=== PATIENT | male | born 1960 | race African-American/Black ===

== ENCOUNTER → 2017-05-16 | Outpatient (CLI) | payer MEDICARE, MEDICAID ==
--- NOTE | 2017-05-16 17:54 | MRI ---
EXAM: Brain w/oContrast CLINICAL INDICATION: 56-year-old male with facial weakness. COMPARISON: None. TECHNIQUE: Multiplanar, multi-sequence MR imaging of the brain without contrast. FINDINGS: No abnormal increased signal intensity is present on diffusion-weighted imaging to suggest restricted diffusion/acute infarction. T2/flair weighted imaging reveals multifocal areas of patchy increased signal intensity present in a subcortical and periventricular deep white matter distribution, a nonspecific finding however may be seen with small vessel ischemic change. Focal area of gliosis and encephalomalacia is present within the LEFT MCA territory distribution, LEFT frontal lobe with areas of cystic type change compatible with sequela of prior infarction. Dilation of the LEFT lateral ventricle secondary to associated volume loss. Volume loss of the LEFT thalamus, superior cerebral peduncle and rigoberto compatible with Wallerian degeneration. There is no evidence of intracranial hemorrhage, mass or edema. Midline structures are within normal limits. The ventricles and sulci are enlarged compatible with underlying volume loss. Major intracranial flow voids are identified. The paranasal sinuses and mastoid air cells are patent. IMPRESSION: 1. No abnormal increased signal intensity is present on diffusion-weighted imaging to suggest restricted diffusion/acute infarction. 2. T2/flair weighted imaging reveals multifocal areas of patchy increased signal intensity present in a subcortical and periventricular deep white matter distribution, a nonspecific finding however may be seen with small vessel ischemic change. Electronically signed by: Micaela Alejandro MD 05/16/2017 5:53 PM LINKER UP Workstation: [id number]
== END | disposition home or self-care (01) ==
LOC: MRI 10:45
PROVIDERS: ATTEND Family Medicine
DX: I69.992 Facial weakness following unspecified cerebrovascular disease (principal)

== ENCOUNTER 2017-11-23 20:59 | Emergency (ER) | payer MEDICARE, MEDICAID ==
--- NOTE | 2017-11-23 21:25 | ED.PDOC ---
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 - History of Present Illness Timing/Duration: 4-6 hours Severity: mild Improving Factors: nothing Associated Symptoms: denies symptoms Allergies/Adverse Reactions: Allergies NO KNOWN ALLERGY Allergy (Unverified 10/08/13 19:49) Home Medications: Ambulatory Orders Acetaminophen [Tylenol] 500 mg PO Q4HR PRN MDD 3Gm 11/23/17 Aspirin [Aspirin EC] 81 mg PO DAILY 11/23/17 Atorvastatin Calcium [Lipitor] 20 mg PO BEDTIME 11/23/17 Biafine 11/23/17 Cyclobenzaprine HCl [Flexeril] 5 mg PO Q8HRS PRN 11/23/17 Diphenhydramine-Acetaminophen [Tylenol Pm Extra Strength 500-25 mg] 1 tab PO BEDTIME PRN 11/23/17 Duloxetine HCl [Cymbalta] 60 mg PO DAILY 11/23/17 Fenofibrate Micronized 200 mg PO DAILY 11/23/17 Hydralazine HCl 50 mg PO Q8HR 11/23/17 Metoprolol Tartrate 100 mg PO BID 11/23/17 Oxybutynin Chloride 5 mg PO TID 11/23/17 Phenytoin Sodium Cap Extended [Dilantin Cap] 100 mg PO BID 11/23/17 Potassium Chloride [Micro-K] 10 meq PO DAILY 11/23/17 Promethazine HCl 25 mg PO Q8HR PRN 11/23/17 Tramadol HCl [Ultram] 50 mg PO Q6HR PRN 11/23/17 Trazodone HCl 50 mg PO BEDTIME 11/23/17 amLODIPine BESYLATE [Norvasc] 10 mg PO BID 11/23/17 cloNIDine HCL [Catapres] 0.1 mg PO Q4H PRN 11/23/17 cloNIDine HCL [Catapres] 0.3 mg PO Q8HR PRN 11/23/17 Review of Systems - Review of Systems Unable to Obtain Due To: condition - CVA APHASIA Past Medical History (General) - Patient Medical History Hx Stroke: Yes Hx Hypertension: Yes Hx Diabetes: No - Vaccination History Immunizations Up to Date: Yes Family Medical History - Family History Father Family History: Unknown Physical Exam - Physical Exam General Appearance: Alert, Other - APHASIC Eye Exam: bilateral normal Ears, Nose, Throat: hearing grossly normal, normal ENT inspection Neck: full range of motion, supple Respiratory: lungs clear, normal breath sounds, no respiratory distress Cardiovascular/Chest: normal peripheral pulses, regular rate, rhythm, no edema, no gallop Gastrointestinal/Abdominal: normal bowel sounds, non tender, soft, no organomegaly, no pulsatile mass Back Exam: normal inspection, no CVA tenderness, no vertebral tenderness Extremity: normal range of motion Neurologic: alert, aphasia, facial droop, motor weakness, other - DENSE RIGHT HEMIPLEGIA Skin Exam: normal color, warm/dry Lymphatic: no adenopathy Departure - Departure Clinical Impression: Vomiting, CVA, old, aphasia Time of Disposition: 22:32 Disposition: Discharge to Home for Departure Forms: ED Discharge - Pt. Copy, Patient Portal Self Enrollment Diet: resume usual diet Activity: as per physical therapy Referrals: Johan Myers MD [Primary Care Provider] - 1-2 Weeks Home Medications: Ambulatory Orders Acetaminophen [Tylenol] 500 mg PO Q4HR PRN MDD 3Gm 11/23/17 Aspirin [Aspirin EC] 81 mg PO DAILY 11/23/17 Atorvastatin Calcium [Lipitor] 20 mg PO BEDTIME 11/23/17 Biafine 11/23/17 Cyclobenzaprine HCl [Flexeril] 5 mg PO Q8HRS PRN 11/23/17 Diphenhydramine-Acetaminophen [Tylenol Pm Extra Strength 500-25 mg] 1 tab PO BEDTIME PRN 11/23/17 Duloxetine HCl [Cymbalta] 60 mg PO DAILY 11/23/17 Fenofibrate Micronized 200 mg PO DAILY 11/23/17 Hydralazine HCl 50 mg PO Q8HR 11/23/17 Metoprolol Tartrate 100 mg PO BID 11/23/17 Oxybutynin Chloride 5 mg PO TID 11/23/17 Phenytoin Sodium Cap Extended [Dilantin Cap] 100 mg PO BID 11/23/17 Potassium Chloride [Micro-K] 10 meq PO DAILY 11/23/17 Promethazine HCl 25 mg PO Q8HR PRN 11/23/17 Tramadol HCl [Ultram] 50 mg PO Q6HR PRN 11/23/17 Trazodone HCl 50 mg PO BEDTIME 11/23/17 amLODIPine BESYLATE [Norvasc] 10 mg PO BID 11/23/17 cloNIDine HCL [Catapres] 0.1 mg PO Q4H PRN 11/23/17 cloNIDine HCL [Catapres] 0.3 mg PO Q8HR PRN 11/23/17
--- NOTE | 2017-11-23 22:01 | CT ---
PROCEDURE: Head CLINICAL HISTORY: 57 years Male headache COMPARISON: 10/08/2013 TECHNIQUE: Contiguous axial CT images obtained through the brain without IV contrast. This exam was performed according to our department optimization program which includes automated exposure control, adjustment of the mA and/or kv according to patient size and/or use of iterative reconstruction technique. FINDINGS: The ventricles and sulci are prominent consistent with atrophic changes. Microvascular ischemic changes. No midline shift or mass effect. No mass lesions. No acute hemorrhage. Atherosclerotic calcifications. Large area of chronic infarct in the left MCA division which was present on the patient's prior study. Compensatory mild enteritis the left lateral ventricle and Wallerian degeneration in the midbrain. No fluid or significant mucosal thickening in the visualized paranasal sinuses. No depressed calvarial fractures. IMPRESSION: No acute intracranial abnormality is identified. Old left MCA infarct Generalized atrophy with microvascular ischemic changes. Electronically signed by: Cira Savage MD 11/23/2017 10:00 PM CDT
--- NOTE | 2017-11-23 22:01 | RAD ---
EXAM DESCRIPTION: Abdomen Flat Upright CLINICAL HISTORY: 57 years Male vomiting COMPARISON: None. TECHNIQUE: Single view of the abdomen. FINDINGS: Gas is present in nondilated colon. No evidence to suggest small bowel obstruction. Study is limited by body habitus. Heart appears enlarged. No obvious free intraperitoneal air. IMPRESSION: No acute process in the abdomen Electronically signed by: Cira Savage MD 11/23/2017 10:00 PM CDT
--- NOTE | 2017-11-23 22:03 | RAD ---
EXAM DESCRIPTION: Chest,1 View CLINICAL HISTORY: 57 years Male vomiting COMPARISON: 10/08/2013. FINDINGS: Cardiac size appears prominent. This may be in part due to prominent epicardial fat which was noted on the prior CT examination. Linear atelectasis in the right lung base. Left hemidiaphragm is obscured. The possibility of underlying atelectasis or infiltrate should be considered. IMPRESSION: Small amount of atelectasis in the right lung base Obscuration of the left hemidiaphragm. Question left retrocardiac atelectasis or infiltrate Electronically signed by: Cira Savage MD 11/23/2017 10:02 PM CDT
[2017-11-23 22:22] VITALS: TEMP 98.9; O2SAT 94
[2017-11-23 22:34] VITALS: BP 181/97
== END 2017-11-23 23:00 ==
LOC: ER 20:59
DX: R11.10 Vomiting, unspecified (principal); I69.920 Aphasia following unspecified cerebrovascular disease; I69.954 Hemiplegia and hemiparesis following unspecified cerebrovascular disease affecting left non-dominant side; I10 Essential (primary) hypertension; Z79.82 Long term (current) use of aspirin; Z79.899 Other long term (current) drug therapy

== ENCOUNTER 2017-11-25 00:26 | Inpatient (IN) | payer MEDICARE, MEDICAID ==
--- NOTE | 2017-11-25 01:05 | RAD ---
EXAM: Single view chest. INDICATION: Cough. COMPARISON: Chest x-ray: 11/23/2017. FINDINGS: There is a retrocardiac airspace opacity. The heart is at the upper limit of normal in size. Small pleural effusions may be present. There is no pneumothorax. IMPRESSION: Retrocardiac airspace opacity Electronically signed by: Prakash Baker MD 11/25/2017 1:03 AM CDT Workstation: [id number]
--- NOTE | 2017-11-25 01:08 | ED.PDOC ---
History of Present Illness - General Chief Complaint: Respiratory Problem Stated Complaint: cough, short of breath Time Seen by Provider: 11/25/17 01:05 Source: RN notes reviewed, family Exam Limitations: other - dysphasia - History of Present Illness Timing/Duration: gone now Severity: moderate Activities at Onset: none Possible Cause: unknown cause Improving Factors: other - coughed up mucous plug Worsening Factors: nothing Associated Symptoms: cough Respiratory Risk Factors: other - dysphagia Allergies/Adverse Reactions: Allergies NO KNOWN ALLERGY Allergy (Unverified 10/08/13 19:49) Home Medications: Ambulatory Orders Acetaminophen [Tylenol] 500 mg PO Q4HR PRN MDD 3Gm 11/23/17 Aspirin [Aspirin EC] 81 mg PO DAILY 11/23/17 Atorvastatin Calcium [Lipitor] 20 mg PO BEDTIME 11/23/17 Biafine 11/23/17 Cyclobenzaprine HCl [Flexeril] 5 mg PO Q8HRS PRN 11/23/17 Diphenhydramine-Acetaminophen [Tylenol Pm Extra Strength 500-25 mg] 1 tab PO BEDTIME PRN 11/23/17 Duloxetine HCl [Cymbalta] 60 mg PO DAILY 11/23/17 Fenofibrate Micronized 200 mg PO DAILY 11/23/17 Hydralazine HCl 50 mg PO Q8HR 11/23/17 Metoprolol Tartrate 100 mg PO BID 11/23/17 Oxybutynin Chloride 5 mg PO TID 11/23/17 Phenytoin Sodium Cap Extended [Dilantin Cap] 100 mg PO BID 11/23/17 Potassium Chloride [Micro-K] 10 meq PO DAILY 11/23/17 Promethazine HCl 25 mg PO Q8HR PRN 11/23/17 Tramadol HCl [Ultram] 50 mg PO Q6HR PRN 11/23/17 Trazodone HCl 50 mg PO BEDTIME 11/23/17 amLODIPine BESYLATE [Norvasc] 10 mg PO BID 11/23/17 cloNIDine HCL [Catapres] 0.1 mg PO Q4H PRN 11/23/17 cloNIDine HCL [Catapres] 0.3 mg PO Q8HR PRN 11/23/17 Levofloxacin [Levaquin] 750 mg PO DAILY #5 tablet 11/25/17 Review of Systems - Review of Systems Constitutional: Denies: chills, fever EENTM: States: nose congestion Respiratory: States: cough, short of breath Cardiology: Denies: chest pain, edema Gastrointestinal/Abdominal: Denies: abdominal pain, diarrhea, nausea, vomiting Genitourinary: States: no symptoms reported Musculoskeletal: States: no symptoms reported Skin: States: no symptoms reported Neurological: States: pre-existing deficit - has R hemiplegia, weakness Past Medical History (General) - Patient Medical History Hx Stroke: Yes Hx Hypertension: Yes Hx Diabetes: No - Vaccination History Hx Pneumococcal Vaccination: Yes - Activities of Daily Living Jail/Assisted Living (if applicable):: [facility] - Triage Comment ED Triage Comment: Upon arrival pt coughed up large amout of mucous Family Medical History - Family History Father Family History: Unknown Physical Exam - Physical Exam General Appearance: Alert, Comfortable, No apparent distress Eyes, Ears, Nose, Throat Exam: PERRL/EOMI, pharynx normal Neck: non-tender Respiratory: chest non-tender, normal breath sounds, rhonchi Cardiovascular/Chest: normal peripheral pulses, regular rate, rhythm, no edema Gastrointestinal/Abdominal: normal bowel sounds, non tender, soft Rectal Exam: deferred Extremity: normal inspection, no pedal edema Neurologic: alert, normal mood/affect Skin Exam: normal color, warm/dry Lymphatic: no adenopathy Progress - EKG/XRAY/CT XRAY: chest - retrocardiac opacity Departure - Departure Clinical Impression: Pneumonia Qualifiers: Laterality: left Lung location: lower lobe of lung Disposition: Discharge to Home or Self Care Departure Forms: ED Discharge - Pt. Copy, Patient Portal Self Enrollment Referrals: Johan Myers MD [Primary Care Provider] - 1-2 Weeks Prescriptions: Levofloxacin [Levaquin] 750 mg PO DAILY #5 tablet Home Medications: Ambulatory Orders Acetaminophen [Tylenol] 500 mg PO Q4HR PRN MDD 3Gm 11/23/17 Aspirin [Aspirin EC] 81 mg PO DAILY 11/23/17 Atorvastatin Calcium [Lipitor] 20 mg PO BEDTIME 11/23/17 Biafine 11/23/17 Cyclobenzaprine HCl [Flexeril] 5 mg PO Q8HRS PRN 11/23/17 Diphenhydramine-Acetaminophen [Tylenol Pm Extra Strength 500-25 mg] 1 tab PO BEDTIME PRN 11/23/17 Duloxetine HCl [Cymbalta] 60 mg PO DAILY 11/23/17 Fenofibrate Micronized 200 mg PO DAILY 11/23/17 Hydralazine HCl 50 mg PO Q8HR 11/23/17 Metoprolol Tartrate 100 mg PO BID 11/23/17 Oxybutynin Chloride 5 mg PO TID 11/23/17 Phenytoin Sodium Cap Extended [Dilantin Cap] 100 mg PO BID 11/23/17 Potassium Chloride [Micro-K] 10 meq PO DAILY 11/23/17 Promethazine HCl 25 mg PO Q8HR PRN 11/23/17 Tramadol HCl [Ultram] 50 mg PO Q6HR PRN 11/23/17 Trazodone HCl 50 mg PO BEDTIME 11/23/17 amLODIPine BESYLATE [Norvasc] 10 mg PO BID 11/23/17 cloNIDine HCL [Catapres] 0.1 mg PO Q4H PRN 11/23/17 cloNIDine HCL [Catapres] 0.3 mg PO Q8HR PRN 11/23/17 Levofloxacin [Levaquin] 750 mg PO DAILY #5 tablet 11/25/17
[2017-11-25] MEDS ORDERED: cefTRIAXone SODIUM 1 GM in SODIUM CHL 0.9% 50ML MIN-BAG+ 50 ML IVPB ONE (01:17)
[2017-11-25] MEDS ORDERED: levoFLOXacin 500 MG TAB PO ONE (01:22)
[2017-11-25] MEDS ORDERED: cefTRIAXone SODIUM 1 GM VIAL ONE (01:31)
[2017-11-25] MEDS ORDERED: SODIUM CHL 0.9% 50ML MIN-BAG+ 50 ML IVPB ONE (01:32)
--- NOTE | 2017-11-25 02:26 | HP ---
SUPERVISING PHYSICIAN: Tucker Whipple MD CHIEF COMPLAINT: Dysphagia and likely aspiration. HISTORY OF PRESENT ILLNESS: This is a 57-year-old male patient with a history of a severe stroke with residual right sided hemiplegia as well as aphasia. Apparently about 3 days ago, the patient started to have some problem swallowing at [facility] where he resides. He actually came to the Emergency Room on 11/23/17 with vomiting. He was given some Phenergan and eventually released back to [facility]. There, they placed him on some Decadron for some potential esophageal inflammation. However, to my knowledge he does not have any history of this. Anyhow, he came back to the Emergency Room last night for dysphagia, coughing, nausea and vomiting. At that point, he was referred for admission for pneumonia. The chest x-ray did show a retrocardiac airspace opacity. Additionally, he had some leukocytosis. On exam, he had some rhonchi and he was admitted. Today, I saw the patient for initial history and physical. The patient is alert and able to answer questions via nods as well as gestures with his left hand as he is aphasic. The nurses were concerned that he was unable to eat breakfast and, in fact, he took a bite of I believe oatmeal and they had trouble suctioning it out because he could not swallow. Therefore, he has remained NPO. He states he has had the trouble with his swallowing for the last 3 days or so. I guess before, he had been able to take diet at [facility] as well as take p.o. medications without difficulty. Right now, his blood pressure is pretty significantly high, but he has been unable to take his p.o. medications for quite some time. PAST MEDICAL HISTORY: 1. Hypertension. 2. Tuberculosis. 3. Cerebrovascular accident with residual right sided hemiplegia and aphasia. 4. Seizures. 5. Depression. 6. Hyperlipidemia. PAST SURGICAL HISTORY: None. CURRENT MEDICATIONS: 1. Acetaminophen 500 mg 1 tablet every 4 hours p.r.n. for mild pain. 2. Amlodipine 10 mg p.o. b.i.d. 3. Aspirin 81 mg p.o. daily. 4. Atorvastatin 20 mg p.o. at bedtime. 5. Benicar 40 mg p.o. in the morning. 6. Clonidine 0.1 mg every 4 hours p.r.n. for blood pressure greater than 180/ 100. 7. Clonidine 0.3 mg every 8 hours scheduled. 8. Cyclobenzaprine 5 mg every 8 hours p.r.n. for muscle spasms. 9. Cymbalta 60 mg p.o. daily. 10. Dilantin 200 mg p.o. b.i.d. 11. Fenofibrate 200 mg p.o. daily. 12. Hydralazine 50 mg every 8 hours. 13. Metoprolol 50 mg 2 tablets (100 mg) b.i.d. 14. Oxybutynin 5 mg p.o. 3 times a day. 15. Potassium 10 mEq p.o. daily. 16. Promethazine 25 mg every 8 hours p.r.n. for nausea and vomiting. 17. Tramadol 50 mg p.o. q.6h. p.r.n. for pain. 18. Trazodone 50 mg p.o. q.h.s. ALLERGIES: NO KNOWN DRUG ALLERGIES. FAMILY HISTORY: A mother and brother have hypertension. Father with myocardial infarction. Mother two years ago of pancreatic cancer. SOCIAL HISTORY: The patient is . He does have two children. His documentation states he drinks alcohol and smokes cigarettes even at [facility]. REVIEW OF SYSTEMS: Please see the history of present illness as the patient is aphasic. PHYSICAL EXAMINATION: VITAL SIGNS: Blood pressure 206/102. Heart rate 95. Respiratory rate 22. Temperature 98.4. Oxygen saturation 93%. GENERAL: Mr. Rothman is a 57-year-old patient who is in no severe distress currently. HEENT: Normocephalic, atraumatic. Pupils are equal and reactive. No nasal drainage. Throat with moist mucosa. He does have a right sided facial droop. NECK: Supple. Midline trachea. No jugular venous distention. CHEST: Symmetrical with equal rise and fall of the chest with inspiration and expiration. Lung sounds are diminished in the bases. He does have bilateral rhonchi, right greater than left. CARDIOVASCULAR: Regular rate and rhythm. Normal S1, S2. ABDOMEN: Soft, obese. Positive bowel sounds. GENITOURINARY: Deferred. EXTREMITIES: Lower extremities with some ankle edema. NEUROLOGIC: The patient is awake and alert. He has a right sided hemiplegia. He is aphasic, but he does not appropriately and uses his left hand to point to things and gesture. LABORATORY: Sodium 140, p.o. 3.9, chloride 104, CO2 26, BUN 18, creatinine 1.11 , glucose 149, lactic acid 1.6, calcium 9.4. White count 14,000, hemoglobin 15.3, hematocrit 44.8, platelet count 236. Phenytoin level is 4.4. Chest x-ray , as stated before, shows a retrocardiac opacity. ASSESSMENT: 1. Aspiration pneumonia. 2. New onset dysphagia. 3. Uncontrolled hypertension. 4. History of cerebrovascular accident with residual right sided weakness and aphasia. 5. History of seizure disorder with a subtherapeutic Dilantin level. 6. Retrocardiac opacity. PLAN: At this point, I have placed the patient on Zosyn for coverage of aspiration pneumonia. He does reside in a fpc, so potentially it could be healthcare associated, but we will know more after the CT scan. Given his history, it is likely aspiration in nature. I also consulted with Dr. Briseno with gastroenterology from [facility] who is going to be here tomorrow and agrees that the patient does need an EGD. The patient will be kept NPO until he is seen by the chemical process equipment operator. I will start the patient on proton pump inhibitor for now. I have also started him on IV blood pressure medications as he cannot take p.o. at this time. This does not appear to be an extension of his stroke at this time. He continues to be aphasic with right sided hemiplegia, but this is nothing new. He does apparently have a retrocardiac opacity via chest x-ray, so we will evaluate this fully with a CT scan of the chest. I also checked his Dilantin level and it is subtherapeutic, so I am going to start him on IV Dilantin while he is not able to take p.o. medications. We will start him on DVT and GI prophylaxis as well. #[id number] [facility]
[2017-11-25] MEDS ORDERED: SODIUM CHLORIDE 0.9% (FLUSH) 10 ML SYG IV PRN (03:27)
[2017-11-25] MEDS ORDERED: ACETAMINOPHEN 325 MG TAB PO PRN (03:27)
[2017-11-25] MEDS ORDERED: ALBUTEROL SULFATE 2.5 MG/3 ML VIAL NEB PRN (03:27)
[2017-11-25] MEDS ORDERED: IV SET AND CAP CHANGE INJ INJ SCH (03:30)
[2017-11-25] MEDS ORDERED: AZITHROMYCIN IV 500 MG in SODIUM CHLORIDE 0.9% 250ML 250 ML IVPB SCH (03:30)
--- NOTE | 2017-11-25 03:57 | PCM.CORE ---
Physician DVT/VTE - Nurse DVT Assessment & Total Each Risk Factor Represents 3 Points: Medical PT with Hx of [place], CHF, Severe infection/sepsis Each Risk Factor Represents 1 Point: Age 41-60, Hx of smoking past year Each Risk Factor is 1 Point: Obesity (BMI >25) DVT Assessment Score: 6 - 5 or more Very High Risk Treatments: Early Ambulation *, Sequential Compression Device Pharmacological: Enoxaparin 40mg SQ Daily
[2017-11-25] MEDS ORDERED: SODIUM CHLORIDE 0.9% 250ML 250 ML ONE (04:27)
[2017-11-25] MEDS ORDERED: AZITHROMYCIN IV 500 MG VIAL IVPB ONE (04:27)
[2017-11-25] MEDS: IPRATROPIUM/ALBUTEROL 3 ML VIAL INH SCH ×4 (08:35→23:52)
[2017-11-25] MEDS ORDERED: hydrALAZINE HCl 20 MG/ML VIAL IV PRN (09:19)
[2017-11-25] MEDS ORDERED: PHENYTOIN SODIUM IVPB SCH (09:30)
[2017-11-25] MEDS ORDERED: SODIUM CHLORIDE 0.9% IVPB SCH (09:30)
[2017-11-25] MEDS ORDERED: PANTOPRAZOLE SODIUM IV 40 MG VIAL IV SCH (09:30)
[2017-11-25] MEDS ORDERED: PHENYTOIN SODIUM INJ 250 MG/5 ML VIAL ONE ×2 (09:57→17:41)
[2017-11-25] MEDS ORDERED: SODIUM CHLORIDE 0.9% 100ML 100 ML IVPB ONE ×4 (09:58→17:41)
[2017-11-25] MEDS ORDERED: ENOXAPARIN SODIUM 40 MG/0.4 ML SYG SUBCU SCH (10:00)
[2017-11-25] MEDS: METOPROLOL TARTRATE INJ 5 MG/5 ML VIAL IV SCH ×2 (10:17→15:30)
[2017-11-25] MEDS: SODIUM CHLORIDE 0.9% IVPB SCH ×2 (10:24→18:18)
[2017-11-25] MEDS: PHENYTOIN SODIUM IVPB SCH ×2 (10:24→18:18)
[2017-11-25] MEDS ORDERED: PIPERACILLIN/TAZOBACTAM 3.375 GM VIAL IVPB ONE ×2 (10:51→14:09)
[2017-11-25] MEDS ORDERED: PIPERACILLIN/TAZOBACTAM 3.375 GM in SODIUM CHLORIDE 0.9% 100ML 100 ML IVPB ONE (11:00)
[2017-11-25] MEDS ORDERED: KCL 20MEQ/D5 1/2NS 1,000 ML IVS PRN (11:18)
[2017-11-25] MEDS ORDERED: cefTRIAXone SODIUM 1 GM in SODIUM CHL 0.9% 50ML MIN-BAG+ 50 ML IVPB SCH (13:00)
[2017-11-25] MEDS ORDERED: PIPERACILLIN/TAZOBACTAM 3.375 GM in SODIUM CHLORIDE 0.9% 100ML 100 ML IVPB SCH (14:00)
[2017-11-25 15:32] VITALS: TEMP 98.1
[2017-11-25 15:46] VITALS: BP 223/106
[2017-11-25 16:31] VITALS: O2SAT 92
[2017-11-25] MEDS ORDERED: cloNIDine PATCH 0.2 MG/24HR 0.2 MG, cloNIDine PATCH 0.1MG/24HR 0.1 MG TD SCH ×2 (17:00)
[2017-11-25] MEDS ORDERED: cloNIDine PATCH 0.1MG/24HR 0.1 MG PATCH TD ONE (17:07)
[2017-11-25] MEDS ORDERED: cloNIDine PATCH 0.2 MG/24HR 0.2 MG PATCH TD ONE (17:07)
[2017-11-25] MEDS ORDERED: LABETALOL INJ 5 MG/ML VIAL IV ONE (17:54)
[2017-11-25] MEDS ORDERED: LABETALOL INJ 5 MG/ML VIAL ONE (17:59)
[2017-11-25] MEDS ORDERED: FUROSEMIDE INJ 40 MG/4 ML VIAL IV SCH (18:30)
[2017-11-25] MEDS ORDERED: EPINEPHrine INJ 0.1 MG/ML 10 ML SYG IV ONE ×4 (18:31→18:40)
[2017-11-25] MEDS ORDERED: SODIUM CHLORIDE 0.9% 1000ML 1,000 ML IVS ONE (18:40)
[2017-11-25] MEDS ORDERED: PROPOFOL 200 MG/20 ML VIAL IV ONE (19:39)
--- NOTE | 2017-11-26 08:21 | DS ---
SUPERVISING PHYSICIAN: Tucker Whipple MD DISCHARGE/TRANSFER SUMMARY DISCHARGE DIAGNOSIS: 1. Acute respiratory failure. 2. Cardiopulmonary arrest. 3. Aspiration pneumonia. 4. Dysphagia. 5. Hypertensive urgency. HOSPITAL COURSE: This 57-year-old male patient was admitted earlier today with aspiration pneumonia and new onset dysphagia. He was unable to take his blood pressure medicines and was placed on IV medications. However, this was inadequately controlling his blood pressure. Additionally, he began to cough and gag on very thick secretions. ABG was done which showed respiratory acidosis with hypoxia. He was a DNR at that point and arrangements were being made to transfer him to [facility]. However, he did progress to cardiopulmonary arrest. ACLS protocol was initiated once the family rescinded the DNR. He was initially PEA and once he was intubated after four rounds of epinephrine and CPR as well as intubation, there was return of spontaneous circulation. At that point [facility] was called and they came to get the patient to transfer to [facility]. It should be noted also that after the resuscitation efforts, the family made him a DNR once again. I spoke with Dr. Walton in the Emergency Room at [facility] as well as Dr. Russo as accepting physician at [facility]. #[id number] [facility]
== END 2017-11-25 20:00 | disposition short-term general hospital (02) | DRG 208 ==
LOC: ER 00:26 → MS 02:25 → OBSVTOIN 02:25
PROVIDERS: ADMIT Nurse Practitioner Family; ATTEND Nurse Practitioner
PROC: 0BH17EZ Insertion of Endotracheal Airway into Trachea, Via Natural or Artificial Opening (ICD-10-PCS; principal; 2017-11-25)
PROC: 5A1935Z Respiratory Ventilation, Less than 24 Consecutive Hours (ICD-10-PCS; 2017-11-25)
DX: J69.0 Pneumonitis due to inhalation of food and vomit (principal); J96.91 Respiratory failure, unspecified with hypoxia; I46.9 Cardiac arrest, cause unspecified; I69.351 Hemiplegia and hemiparesis following cerebral infarction affecting right dominant side; R13.10 Dysphagia, unspecified; I16.0 Hypertensive urgency; I10 Essential (primary) hypertension; Z66 Do not resuscitate; I69.920 Aphasia following unspecified cerebrovascular disease; F32.9 Major depressive disorder, single episode, unspecified; E78.5 Hyperlipidemia, unspecified; Z79.82 Long term (current) use of aspirin; Z79.899 Other long term (current) drug therapy; F17.210 Nicotine dependence, cigarettes, uncomplicated; E66.9 Obesity, unspecified; G40.909 Epilepsy, unspecified, not intractable, without status epilepticus; R91.8 Other nonspecific abnormal finding of lung field; Z68.30 Body mass index [BMI] 30.0-30.9, adult